=== PATIENT | female | born 1985 ===

== ENCOUNTER 2017-06-11 02:20 | Inpatient (IN) ==
--- NOTE | 2017-06-11 02:27 | Emergency Department Note ---
Disposition Abdominal Pain HPI - General Chief Complaint: ED Abdominal Pain Stated Complaint: kidney stone Time Seen by Provider: 06/11/17 02:27 Source: patient Mode of arrival: ambulatory Limitations: no limitations Nursing Notes Reviewed: Yes Vital Signs Reviewed: Yes - History of Present Illness Pain Scale: 9 - Related Data Allergies Allergy/AdvReac Type Severity Reaction Status Date / Time Penicillins AdvReac Hives Verified 06/11/17 02:23 Sulfa (Sulfonamide AdvReac Hives Verified 06/11/17 02:23 Antibiotics) Abdominal Pain PMH - Past Medical History Medical history: Reports: kidney stones Psychiatric history: Reports: no psych history - Social History Smoking status: Current every day smoker Alcohol use: Reports: rarely Drug use: Reports: none Physical Exam - General Limitations: no limitations General appearance: alert Course Vital Signs Temperature 98.7 F 06/11/17 02:23 Pulse Rate 83 06/11/17 02:23 Respiratory Rate 12 06/11/17 02:23 Blood Pressure 138/90 06/11/17 02:23 O2 Sat by Pulse Oximetry 98 06/11/17 02:23 Temperature 98.7 F 06/11/17 02:23 Pulse Rate 83 06/11/17 02:23 Respiratory Rate 12 06/11/17 02:23 Blood Pressure 138/90 06/11/17 02:23 O2 Sat by Pulse Oximetry 98 06/11/17 02:23 Oxygen Delivery Oxygen Delivery Room Air
[2017-06-11] MEDS ORDERED: Ondansetron 4 MG/2 ML VIAL IVP ONE (02:35)
[2017-06-11] MEDS ORDERED: 0.9 % Sodium Chloride 1,000 ML IVC ONE ×2 (02:35→10:52)
[2017-06-11] MEDS ORDERED: Ketorolac 15 MG/ML VIAL IVP ONE (02:35)
--- NOTE | 2017-06-11 02:46 | Emergency Department Note ---
Disposition Clinical Impression: Right distal ureteral calculus, Ureteral obstruction, right UTI (urinary tract infection) Qualifiers: Urinary tract infection type: site unspecified Hematuria presence: with hematuria Qualified Code(s): N39.0 - Urinary tract infection, site not specified Abdominal pain Qualifiers: Abdominal location: right lower quadrant Qualified Code(s): R10.31 - Right lower quadrant pain Nausea and vomiting Qualifiers: Vomiting type: unspecified Vomiting Intractability: non-intractable Qualified Code(s): R11.2 - Nausea with vomiting, unspecified Disposition: Admitted As Inpatient Condition: Fair Time of Disposition: 04:08 Abdominal Pain HPI - General Chief Complaint: ED Abdominal Pain Stated Complaint: kidney stone Time Seen by Provider: 06/11/17 02:27 Source: patient Nursing Notes Reviewed: Yes Vital Signs Reviewed: Yes - History of Present Illness HPI Narrative: 31-year-old female complains of right lower back, flank with radiation to right- side of groin pain that started 9 hours ago. Patient states she has a history of kidney stones with her last stone passing at home 4 months ago. Patient states she tried to pass the stone at home with taken Tylenol but her pain elevated to 10/10, 2-1/2 hours ago. She could not longer tolerate the pain with associated nausea, and vomiting. Patient also complains of urgency and frequency, but is urinating in very small amounts and did not see any blood. Patient has had surgery to correct damage to her left ureter in the past. An patient has had a . Patient still has appendix and gallbladder Pain Scale: 9 - Related Data Allergies Allergy/AdvReac Type Severity Reaction Status Date / Time Penicillins AdvReac Hives Verified 06/11/17 02:23 Sulfa (Sulfonamide AdvReac Hives Verified 06/11/17 02:23 Antibiotics) All systems ED: reviewed and negative except as stated. Review of Systems: As Per HPI Constitutional: Reports: fever. Denies: chills, weakness Gastrointestinal: Reports: abdominal pain, nausea, vomiting. Denies: diarrhea Genitourinary: Reports: urgency, dysuria, frequency Musculoskeletal: Reports: back pain Abdominal Pain PMH - Past Medical History Medical history: Reports: kidney stones Psychiatric history: Reports: no psych history - Social History Smoking status: Current every day smoker Alcohol use: Reports: rarely Drug use: Reports: none Physical Exam Vital Signs Temperature 98.7 F 02/11/18 02:23 Pulse Rate 83 06/11/17 02:23 Respiratory Rate 12 06/11/17 02:23 Blood Pressure 138/90 06/11/17 02:23 O2 Sat by Pulse Oximetry 98 06/11/17 02:23 Temperature 98.7 F 06/11/17 02:23 Pulse Rate 83 06/11/17 02:23 Respiratory Rate 12 06/11/17 02:23 Blood Pressure 138/90 06/11/17 02:23 O2 Sat by Pulse Oximetry 98 06/11/17 02:23 Oxygen Delivery Oxygen Delivery Room Air CONSTITUTIONAL: Alert and oriented X3, well-nourished, well appearing, in no apparent distress HEAD: Normocephalic; atraumatic. EYES: PERRL, no scleral icterus. NOSE: The nose is normal in appearance without rhinorrhea RESP: Normal chest excursion with respiration; breath sounds clear and equal bilaterally; no wheezes, rhonchi, or rales CARD: Regular rhythm, without murmurs, rub or gallop ABD: Non-distended; tender to palpation over McBurney's point. Moderate rebound tenderness soft,without rigidity, or guarding Back: Right-sided CVA tenderness to light palpation SKIN: Normal for age and race; warm and dry; no apparent lesions EXTREMITIES: Pulses are 2 plus and equal times 4 extremities, no peripheral edema or calf muscle pain. - General Limitations: no limitations General appearance: alert Course - Reevaluation(s) Reevaluation #1: Patient still in pain. 55 g of fentanyl ordered IV. Patient also have IV ceftriaxone 1 g ordered for her UTI Time: 03:54 Reevaluation #2: Patient's pains going back up. Patient is given 1 dose of by mouth morphine 30 mg with a small amount of water Time: 04:27 - Consultations Consultation #1: Consulted with Dr. Knowles presents to keep patient nothing by mouth and admit to medicine Time: 03:54 Vital Signs Temperature 98.7 F 06/11/17 02:23 Pulse Rate 83 06/11/17 02:23 Respiratory Rate 12 06/11/17 02:23 Blood Pressure 138/90 06/11/17 02:23 O2 Sat by Pulse Oximetry 98 06/11/17 02:23 Temperature 98.3 F 06/11/17 04:22 Pulse Rate 83 02/11/18 02:23 Respiratory Rate 16 06/11/17 04:22 Blood Pressure 132/84 06/11/17 04:22 O2 Sat by Pulse Oximetry 98 06/11/17 02:23 Oxygen Delivery Oxygen Delivery Room Air Abdominal Pain - MDM Narrative Medical decision making narrative: Patient presents with right-sided CVA, flank and abdominal pain crossing over McBurney's point with a history of kidney stones. Patient still has an appendix. Patient's workup is for kidney stones versus acute appendicitis. Labs: UA, urine test, CBC, BMP, LFTs, lipase ordered. CT abdomen and pelvis noncontrast ordered. Patient will be administered Toradol for pain and Zofran for nausea. CT scan per radiology shows 1. Tandem of adjacent obstructing distal right ureter calculi, measuring in total 10 mm in length. Largest individual stone measures approximately 6 mm. There is associated severe hydroureter and moderate hydronephrosis. 2. 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 No left hydronephrosis. 3. No evidence of acute appendicitis. Patient has right-sided ureterolithiasis complicated by UTI. Patient will require urologic follow-up and inpatient treatment with IV antibiotics. Patient has no elevation of WBC and a sore labs are clinically unremarkable. I discussed case with Dr. Knowles of urology, he states to keep patient nothing by mouth and admit to medicine. She understands and agrees to treatment and plan for admission. Dr. Devries the hospitalist as accepted patient for admission at 0408 hrs in stable condition. Pain controlled. - Lab Data Lab results reviewed: Yes I reviewed the patient's lab results. Lab results narrative: Short CBC 06/11/17 Range/Units 03:00 WBC 7.6 (4.3-11.1) K/mcL Hgb 13.4 (11.5-15.4) g/dL Hct 41.5 (35.3-44.9) % Plt Count 319 (140-400) K/mcL Neutrophils # 6.0 (1.6-8.9) K/mcL BMP 06/11/17 Range/Units 03:00 Sodium 138 (136-145) mEq/L Potassium 3.5 (3.5-5.1) mEq/L Chloride 107 (98-107) mEq/L Carbon Dioxide 24 (23-29) mEq/L BUN 10 (6-20) mg/dL Creatinine 0.77 (0.60-1.20) mg/dL Glucose 134 H (70-105) mg/dL Calcium 9.2 (8.6-10.3) mg/dL Liver Function 06/11/17 Range/Units 03:00 Total Bilirubin 0.3 (0.3-1.0) mg/dL Direct Bilirubin 0.1 (0.0-0.2) mg/dL AST 14 (13-39) Units/L ALT 16 (7-52) Units/L Alkaline Phosphatase 115 H (34-104) Units/L Albumin 4.4 (3.5-5.7) g/dL Urine 06/11/17 Range/Units 02:46 Urine Color Yellow (Yellow) Urine Clarity Cloudy A (Clear) Urine pH 6.0 (5.0-8.0) pH Units Ur Specific [place] 1.030 H (1.010-1.025) Urine Protein 30 H (Neg-Trace) mg/dL Urine Glucose (UA) Normal (Normal) mg/dL Result diagrams: 06/11/17 03:00 06/11/17 03:00 Lab Results 06/11/17 06/11/17 06/11/17 Range/Units 02:46 02:46 03:00 WBC 7.6 (4.3-11.1) K/mcL RBC 5.21 H (3.82-4.97) M/mcL Hgb 13.4 (11.5-15.4) g/dL Hct 41.5 (35.3-44.9) % MCV 79.7 L (83.0-100.0) fL MCH 25.7 L (28.0-33.3) pg MCHC 32.3 (31.6-35.5) g/dL RDW 14.2 (11.5-14.5) % Plt Count 319 (140-400) K/mcL MPV 9.7 (9.4-12.4) fL Immature Gran % 0.4 (0-4) % Seg Neutrophils % 78.6 % Lymphocytes % 13.0 % Monocytes % 6.4 % Eosinophils % 1.2 % Basophils % 0.4 % Neutrophils # 6.0 (1.6-8.9) K/mcL Lymphocytes # 1.0 (0.6-4.6) K/mcL Monocytes # 0.5 (0.0-1.3) K/mcL Eosinophils # 0.1 (0.0-0.6) K/mcL Basophils # 0.0 (0.0-0.2) K/mcL Sodium (136-145) mEq/L Potassium (3.5-5.1) mEq/L Chloride (98-107) mEq/L Carbon Dioxide (23-29) mEq/L BUN (6-20) mg/dL Creatinine (0.60-1.20) mg/dL Est GFR ( Amer) (> 60) Est GFR (Non-Af Amer) (> 60) BUN/Creatinine Ratio (6-26) Glucose (70-105) mg/dL Calculated Osmolality (280-300) Calcium (8.6-10.3) mg/dL Total Bilirubin (0.3-1.0) mg/dL Direct Bilirubin (0.0-0.2) mg/dL Indirect Bilirubin (0.0-1.2) mg/dL AST (13-39) Units/L ALT (7-52) Units/L Alkaline Phosphatase (34-104) Units/L Serum Total Protein (6.4-8.9) g/dL Albumin (3.5-5.7) g/dL Globulin (2.4-3.5) g/dL Albumin/Globulin Ratio (1.1-2.2) Lipase (11-82) Units/L Urine Color Yellow (Yellow) Urine Clarity Cloudy A (Clear) Urine pH 6.0 (5.0-8.0) pH Units Ur Specific [place] 1.030 H (1.010-1.025) Urine Protein 30 H (Neg-Trace) mg/dL Urine Glucose (UA) Normal (Normal) mg/dL Urine Ketones Negative (Negative) mg/dL Urine Blood Small H (Negative) Urine Nitrite Negative (Negative) Urine Bilirubin Negative (Negative) Urine Urobilinogen Normal (Normal) mg/dL Ur Leukocyte Esterase Moderate H (Negative) Urine Microscopic RBC 15-30 H (0-3) per hpf Urine Microscopic WBC TNTC H (0-3) per hpf Ur Squamous Epith Cells Many H (None-Few) per lpf Urine Bacteria Moderate H (None-Few) per hpf Hyaline Casts None Seen (None-Few) per lpf Ur Culture Indicated? NO. (NO) Urine Test Negative (Negative) 06/11/17 Range/Units 03:00 WBC (4.3-11.1) K/mcL RBC (3.82-4.97) M/mcL Hgb (11.5-15.4) g/dL Hct (35.3-44.9) % MCV (83.0-100.0) fL MCH (28.0-33.3) pg MCHC (31.6-35.5) g/dL RDW (11.5-14.5) % Plt Count (140-400) K/mcL MPV (9.4-12.4) fL Immature Gran % (0-4) % Seg Neutrophils % % Lymphocytes % % Monocytes % % Eosinophils % % Basophils % % Neutrophils # (1.6-8.9) K/mcL Lymphocytes # (0.6-4.6) K/mcL Monocytes # (0.0-1.3) K/mcL Eosinophils # (0.0-0.6) K/mcL Basophils # (0.0-0.2) K/mcL Sodium 138 (136-145) mEq/L Potassium 3.5 (3.5-5.1) mEq/L Chloride 107 (98-107) mEq/L Carbon Dioxide 24 (23-29) mEq/L BUN 10 (6-20) mg/dL Creatinine 0.77 (0.60-1.20) mg/dL Est GFR ( Amer) > 60 (> 60) Est GFR (Non-Af Amer) > 60 (> 60) BUN/Creatinine Ratio 13 (6-26) Glucose 134 H (70-105) mg/dL Calculated Osmolality 287 (280-300) Calcium 9.2 (8.6-10.3) mg/dL Total Bilirubin 0.3 (0.3-1.0) mg/dL Direct Bilirubin 0.1 (0.0-0.2) mg/dL Indirect Bilirubin 0.2 (0.0-1.2) mg/dL AST 14 (13-39) Units/L ALT 16 (7-52) Units/L Alkaline Phosphatase 115 H (34-104) Units/L Serum Total Protein 7.5 (6.4-8.9) g/dL Albumin 4.4 (3.5-5.7) g/dL Globulin 3.1 (2.4-3.5) g/dL Albumin/Globulin Ratio 1.4 (1.1-2.2) Lipase 27 (11-82) Units/L Urine Color (Yellow) Urine Clarity (Clear) Urine pH (5.0-8.0) pH Units Ur Specific [place] (1.010-1.025) Urine Protein (Neg-Trace) mg/dL Urine Glucose (UA) (Normal) mg/dL Urine Ketones (Negative) mg/dL Urine Blood (Negative) Urine Nitrite (Negative) Urine Bilirubin (Negative) Urine Urobilinogen (Normal) mg/dL Ur Leukocyte Esterase (Negative) Urine Microscopic RBC (0-3) per hpf Urine Microscopic WBC (0-3) per hpf Ur Squamous Epith Cells (None-Few) per lpf Urine Bacteria (None-Few) per hpf Hyaline Casts (None-Few) per lpf Ur Culture Indicated? (NO) Urine Test (Negative) - Radiology Data Radiology results reviewed: Yes I reviewed the patient's radiology results. Abdomen/Pelvis CT 06/11/17 02:34 IMPRESSION: 1. Tandem of adjacent obstructing distal right ureter calculi, measuring in total 10 mm in length. Largest individual stone measures approximately 6 mm. There is associated severe hydroureter and moderate hydronephrosis. 2. 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 No left hydronephrosis. 3. No evidence of acute appendicitis. D/ / Varun Cortez MD / Varun Cortez MD Interpreting Provider: Varun Cortez MD Attestation Statement - Attestation Attestation: I examined this patient and my medical decision-making was reviewed with the Resident Physician. I agree with the documented findings, disposition and treatment plan as described except to the extent set forth below. Patient in the emergency department with right-sided flank pain. History of kidney stones. Patient does admit that she has been having some burning with urination and she did try to drink a lot of water. On examination she is uncomfortable pacing in the room. Right CVA tenderness. Plan. Patient with 2 stones in the right distal ureter. UTI. She is discussed with urology. Starting on antibiotic and admit to medicine.
[2017-06-11 02:52] LABS: Bilirubin,Urine Negative (Negative); Blood,Urine Small (Negative); Clarity,Urine Cloudy (Clear); Color,Urine Yellow (Yellow); Glucose,Urine (UA) Normal (Normal); Ketones,Urine Negative (Negative); Leukocyte Esterase,Urine Moderate (Negative); Nitrite,Urine Negative (Negative); Protein,Urine 30 mg/dL (Neg-Trace); Urobilinogen,Urine Normal (Normal)
[2017-06-11 02:53] LABS: Bacteria,Urine Moderate per hpf (None-Few); Hyaline Casts,Urine None Seen per lpf (None-Few); RBC,Urine 15-30 per hpf (0-3); Squamous Epithelial Cell,Urine Many per lpf (None-Few); WBC,Urine TNTC per hpf (0-3)
[2017-06-11 03:08] LABS: Basophils % 0.4 %; Eosinophils # 0.1 K/mcL (0.0-0.6); Eosinophils % 1.2 %; Hematocrit 41.5 % (35.3-44.9); Hemoglobin 13.4 g/dL (11.5-15.4); Immature Granulocytes % 0.4 % (0-4); Mean Corpuscular HGB Conc 32.3 g/dL (31.6-35.5); Mean Corpuscular Hemoglobin 25.7 pg (28.0-33.3); Mean Corpuscular Volume 79.7 fL (83.0-100.0); Mean Platelet Volume 9.7 fL (9.4-12.4); Monocytes # 0.5 K/mcL (0.0-1.3); Monocytes % 6.4 %; Platelet Count 319 K/mcL (140-400); Red Blood Count 5.21 M/mcL (3.82-4.97); Red Cell Distribution Width 14.2 % (11.5-14.5); Segmented Neutrophils % 78.6 %
[2017-06-11 03:23] LABS: Alanine Aminotransferase 16 Units/L (7-52); Albumin 4.4 g/dL (3.5-5.7); Albumin/Globulin Ratio 1.4 (1.1-2.2); Alkaline Phosphatase 115 Units/L (34-104); Aspartate Amino Transferase 14 Units/L (13-39); BUN/Creatinine Ratio 13 (6-26); Bilirubin,Direct 0.1 mg/dL (0.0-0.2); Bilirubin,Indirect 0.2 mg/dL (0.0-1.2); Bilirubin,Total 0.3 mg/dL (0.3-1.0); Blood Urea Nitrogen 10 mg/dL (6-20); Calcium 9.2 mg/dL (8.6-10.3); Carbon Dioxide 24 mEq/L (23-29); Chloride 107 mEq/L (98-107); Globulin 3.1 g/dL (2.4-3.5); Glucose 134 mg/dL (70-105); Lipase 27 Units/L (11-82); Osmolality,Calculated 287 (280-300); Potassium 3.5 mEq/L (3.5-5.1); Sodium 138 mEq/L (136-145); Total Protein 7.5 g/dL (6.4-8.9); eGFR For African Americans > 60 (> 60); eGFR For Non-African Americans > 60 (> 60)
[2017-06-11] MEDS ORDERED: *HR* FentaNYL (PF) 100 MCG/2 ML VIAL IVP ONE (03:30)
[2017-06-11] MEDS ORDERED: cefTRIAXone 1,000 MG in Water for inj. (sterile) 20 ML 10 ML IVPB ONE (04:00)
--- NOTE | 2017-06-11 04:20 | Internal Med History&Physical ---
Date of Encounter: 06/11/17 Time of Encounter: 04:17 Assessment and Plan (1) Right distal ureteral calculus Current visit: Yes Status: Acute NPO, IVF, IV pain med, IV antibiotics ED d/w Dr Knowles who will see in a.m (2) Hydronephrosis, right Current visit: Yes Status: Acute management as above (3) PCOS (polycystic ovarian syndrome) Current visit: Yes Status: Acute (4) UTI (urinary tract infection) Current visit: Yes Status: Acute IV rocephin cx pend Qualifiers: Urinary tract infection type: site unspecified Hematuria presence: with hematuria Qualified Code(s): N39.0 - Urinary tract infection, site not specified; R31.9 - Hematuria, unspecified; R31.9 - Hematuria, unspecified Internal Medicine - H&P: HPI History of present illness: Ms. Pak is a 31 year old female with hx of PCOS and recurrent renal stones who presents with renal colic c/b UTI and hydronephrosis/hydroureter. She had prodromal 2 days hx of UTI symptoms prior to onset of right sided flank pain on monday. 02/07, sharp, associated with emesis, burning urination. Improved with fentanyl. Did not get better with toradol CT/CT abd pelvis wo no iv no oral IMPRESSION: 1. Tandem of adjacent obstructing distal right ureter calculi, measuring in total 10 mm in length. Largest individual stone measures approximately 6 mm. There is associated severe hydroureter and moderate hydronephrosis. 2. 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 No left hydronephrosis. 3. No evidence of acute appendicitis. Past Med Surg Social Fam HX - Past Medical History Medical history: kidney stones Psychiatric history: no psych history - Social History Smoking Status: Current every day smoker Smokeless Tobacco Status: No Alcohol use: rarely Drug use: none Internal Medicine - H&P: Meds 3 Allergy/AdvReac Type Severity Reaction Status Date / Time Penicillins AdvReac Hives Verified 06/11/17 02:23 Sulfa (Sulfonamide AdvReac Hives Verified 06/11/17 02:23 Antibiotics) All Systems PM: A 10-system review of systems was performed and is negative for pertinent findings except as documented above in the HPI. Review of systems: ROS 14 point review of systems reviewed as best as possible given presentation. Pertinent positive or negative as per HPI or otherwise reviewed as negative - Constitutional Vitals: Temp Pulse Resp BP Pulse Ox 98.7 F 83 12 138/90 98 06/11/17 02:23 06/11/17 02:23 06/11/17 02:23 06/11/17 02:23 06/11/17 02:23 Exam: General - AAO x 3 Psych - Appropriate affect/speech. No agitation Eyes - BRENDA. Eye lids intact. No scleral icterus Heart - Sinus. RRR. S1 and S2 present. No added HS/murmurs appreciated. No elevated JVD appreciated. Lung - Adequate air entry b/l, No crackles/wheezes appreciated GI - Soft, non-tender. No hepatosplenomegaly/ascites. BS+ - Right sided flank pain Skin - Intact. No rash/petechiae/ecchymosis. Warm extremities MSK - Joints with normal ROM. No joint swellings Internal Med - H&P Results - Labs CBC & Chem 7: 06/11/17 03:00 06/11/17 03:00 Labs: Short CBC 06/11/17 Range/Units 03:00 WBC 7.6 (4.3-11.1) K/mcL Hgb 13.4 (11.5-15.4) g/dL Hct 41.5 (35.3-44.9) % Plt Count 319 (140-400) K/mcL Neutrophils # 6.0 (1.6-8.9) K/mcL BMP 06/11/17 03:00 Sodium 138 Potassium 3.5 Chloride 107 Carbon Dioxide 24 BUN 10 Creatinine 0.77 Glucose 134 H Calcium 9.2 Liver Function 06/11/17 Range/Units 03:00 Total Bilirubin 0.3 (0.3-1.0) mg/dL Direct Bilirubin 0.1 (0.0-0.2) mg/dL AST 14 (13-39) Units/L ALT 16 (7-52) Units/L Alkaline Phosphatase 115 H (34-104) Units/L Albumin 4.4 (3.5-5.7) g/dL Urine 06/11/17 Range/Units 02:46 Urine Color Yellow (Yellow) Urine Clarity Cloudy A (Clear) Urine pH 6.0 (5.0-8.0) pH Units Ur Specific [place] 1.030 H (1.010-1.025) Urine Protein 30 H (Neg-Trace) mg/dL Urine Glucose (UA) Normal (Normal) mg/dL - Impressions ITS Impressions Abdomen/Pelvis CT 06/11/17 02:34 IMPRESSION: 1. Tandem of adjacent obstructing distal right ureter calculi, measuring in total 10 mm in length. Largest individual stone measures approximately 6 mm. There is associated severe hydroureter and moderate hydronephrosis. 2. 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 No left hydronephrosis. 3. No evidence of acute appendicitis. D/ / Varun Cortez MD / Varun Cortez MD Interpreting Provider: Varun Cortez MD
[2017-06-11] MEDS ORDERED: Naloxone 0.4 MG/ML INJ IVP PRN ×2 (04:22→15:27)
[2017-06-11] MEDS ORDERED: Prochlorperazine 10 MG/2 ML VIAL IVP PRN ×2 (04:24→15:27)
[2017-06-11] MEDS ORDERED: Ondansetron 4 MG/2 ML VIAL IVP PRN ×2 (04:24→15:27)
[2017-06-11] MEDS ORDERED: *HR* FentaNYL (PF) 100 MCG/2 ML VIAL IVP PRN ×2 (04:26→15:27)
[2017-06-11] MEDS ORDERED: *HR* Morphine Immed Rel 30 MG TABLET PO ONE (04:26)
[2017-06-11] MEDS ORDERED: Ringers Solution, Lactated 1,000 ML IVC SCH (04:30)
--- NOTE | 2017-06-11 07:38 | Urology - Consult Note ---
Date of Encounter: 06/11/17 Time of Encounter: 07:34 - Assessment and Plan (1) Right distal ureteral calculus Current Visit: Yes Status: Acute Assessment and plan: Patient feels better this morning. We will obtain KUB for evaluation of right distal ureteral stones. If stone still in place we will proceed with right ureteroscopic stone extraction later today. Informed consent obtained and placed in the chart. Patient and significant other agree with proceeding with procedure if indicated. (2) UTI (urinary tract infection) Current Visit: Yes Status: Acute Assessment and plan: Patient's urinalysis was negative for nitrites and appears contaminated patient did receive Rocephin already. Question whether the patient truly has a urinary tract infection with no elevated WBC count and no fever. Qualifiers: Urinary tract infection type: site unspecified Hematuria presence: with hematuria Qualified Code(s): N39.0 - Urinary tract infection, site not specified; R31.9 - Hematuria, unspecified; R31.9 - Hematuria, unspecified Urology CN:HPI Consult date: 06/11/17 Requesting physician: Antelmo Lerma History of present illness: Candy is a 31-year-old female with a history of recent admission to the hospital secondary to severe right-sided flank pain. Patient was found in the emergency department last night to have 2 distal right ureteral stones. Patient also with a smaller right renal stone. Patient states that her pain has improved this morning. Pain is currently a 2-3 and a 10. Pain is pressure in nature located in the right flank. Patient denies any current nausea or vomiting. No fevers. Patient's urinalysis appears contaminated. Labs are relatively normal. Past Med Surg Social Fam HX - Past Medical History Medical history: kidney stones Psychiatric history: no psych history - Past Surgical History Surgical History: - Social History Smoking Status: Current every day smoker Smokeless Tobacco Status: No Alcohol use: rarely Drug use: none Medications and Allergies 3 Allergy/AdvReac Type Severity Reaction Status Date / Time Penicillins AdvReac Hives Verified 06/11/17 02:23 Sulfa (Sulfonamide AdvReac Hives Verified 06/11/17 02:23 Antibiotics) Review of Systems - Constitutional no chills, no fever(s) - EENT Nose, mouth and throat: no dizziness, no headache(s) - Cardiovascular no chest pain - Respiratory no cough, no dyspnea - Gastrointestinal abdominal pain - Musculoskeletal back pain - Integumentary no erythema - Neurological no confusion - Psychiatric no confusion - Hematologic/Lymphatic no lymphadenopathy - Allergic/Immunologic no throat swelling, no wheezing Exam Initial Vital Signs Temp Pulse Resp BP Pulse Ox 98.7 F 83 12 138/90 98 06/11/17 02:23 06/11/17 02:23 06/11/17 02:23 06/11/17 02:23 06/11/17 02:23 - General physical appearance Present: well developed, no distress, moderate pain. Absent: jaundice - Eyes Absent: icteric - Neck Present: no masses, no lymphadenopathy - Respiratory Present: normal respiratory effort - Cardiovascular Cardiovascular exam IM: RRR - Abdomen Abdomen: Present: soft. Absent: masses, suprapubic tenderness - Integumentary Present: no rash, no abnormal pigmentation. Absent: lesions - Neurologic Absent: confused Urology Results - Labs 06/11/17 03:00 06/11/17 03:00 Abnormal lab results RBC 5.21 M/mcL (3.82-4.97) H 06/11/17 03:00 MCV 79.7 fL (83.0-100.0) L 06/11/17 03:00 MCH 25.7 pg (28.0-33.3) L 06/11/17 03:00 Glucose 134 mg/dL (70-105) H 06/11/17 03:00 Alkaline Phosphatase 115 Units/L (34-104) H 06/11/17 03:00 Urine Clarity Cloudy (Clear) A 06/11/17 02:46 Ur Specific [place] 1.030 (1.010-1.025) H 06/11/17 02:46 Urine Protein 30 mg/dL (Neg-Trace) H 06/11/17 02:46 Urine Blood Small (Negative) H 06/11/17 02:46 Ur Leukocyte Esterase Moderate (Negative) H 06/11/17 02:46 Urine Microscopic RBC 15-30 per hpf (0-3) H 06/11/17 02:46 Urine Microscopic WBC TNTC per hpf (0-3) H 06/11/17 02:46 Ur Squamous Epith Cells Many per lpf (None-Few) H 06/11/17 02:46 Urine Bacteria Moderate per hpf (None-Few) H 06/11/17 02:46 All other labs normal. - Imaging CT scan - abdomen: image reviewed CT scan - pelvis: image reviewed (Distal right ureteral stone as well as right renal stone) Consult Discharge Plan - Plan Referrals: Abby Yadav MD [Primary Care Provider] - Kit Cesar MD [Family Provider] -
--- NOTE | 2017-06-11 10:57 | Internal Med Progress Note ---
Date of Encounter: 06/11/17 Time of Encounter: 10:54 - Assessment and plan (1) Sepsis Current Visit: Yes Status: Acute Assessment and plan: Presumed sepsis Fever 100.8, HR 110-120, Evidence of abnormal UA Continue 2g rocephin daily IVF hydration, BP low normal Follow urine culture Obtain blood culture Complicated UTI due to presence of stones and hydronephrosis, urology is following Obtain EKG to evaluate tachycardia Pain control Strict I/Os Qualifiers: Sepsis type: sepsis due to unspecified organism Qualified Code(s): A41.9 - Sepsis, unspecified organism (2) UTI (urinary tract infection) Current Visit: Yes Status: Acute Assessment and plan: complicated, plan is as in sepsis above Qualifiers: Urinary tract infection type: site unspecified Hematuria presence: with hematuria Qualified Code(s): N39.0 - Urinary tract infection, site not specified; R31.9 - Hematuria, unspecified; R31.9 - Hematuria, unspecified (3) Hydronephrosis Current Visit: Yes Status: Acute Assessment and plan: following, as above Qualifiers: Hydronephrosis type: with renal calculous obstruction Qualified Code(s): N13.2 - Hydronephrosis with renal and ureteral calculous obstruction (4) Right distal ureteral calculus Current Visit: Yes Status: Acute Assessment and plan: As in sepsis - Subjective Interval history: Seen and evaluated at the bedside, she reports some improvement in her back pain NOw having fevers, tachycardic, no chest pain or palpitations EKG reviewed-Sinus - Constitutional Vitals: Temp Pulse Resp BP Pulse Ox 99.0 F 125 14 98/56 96 06/11/17 10:10 06/11/17 10:10 06/11/17 10:10 06/11/17 10:10 06/11/17 10:10 General appearance: Present: mild distress, A&O X 3, pleasant - Head Head exam: Present: atraumatic, normocephalic - Eye Eye exam: Present: PERRL, conjuntiva pink, sclera anicteric Pupils: Present: PERRL - Neck Neck exam general surgery: Present: supple, trachea midline. Absent: lymphadenopathy - Respiratory Respiratory exam: Present: CTAB. Absent: accessory muscle use, rales, rhonchi, wheezes - Cardiovascular Cardiovascular exam: Present: RRR, +S1, +S2. Absent: diastolic murmur, gallop, rubs, systolic murmur - GI/Abdominal GI/Abdominal exam: Present: normal bowel sounds, soft, no peritoneal signs. Absent: distended, tenderness - Extremities Exam Extremities exam: Present: warm, radial pulses palpable and symmetrical. Absent : calf tenderness, cyanotic, pedal edema - Back Exam Back exam: Present: CVA tenderness (R) - Neurological Exam Neurological exam: Present: alert, CN II-XII intact, oriented X3, no focal deficits. Absent: pronater drift, facial droop, speech deficit - Skin Skin exam: Present: dry, intact Internal Medicine: Result - Labs CBC & Chem 7: 06/11/17 03:00 06/11/17 03:00 - Impressions Impressions KUB X-Ray 06/11/17 07:31 IMPRESSION: Stones in the distal right ureter seen to better advantage on CT from earlier in the same day. Questionable visualization of the stone mid pole right kidney. D/ / 06/11/2017 09:25:02 Rafat Condon MD / laura Interpreting Provider: Rafat Condon MD Consult Discharge Plan - Plan Referrals: Kit Cesar MD [Family Provider] - Abby Yadav MD [Primary Care Provider] -
[2017-06-11] MEDS ORDERED: 0.9 % Sodium Chloride 1,000 ML IVC SCH (11:00)
--- NOTE | 2017-06-11 13:57 | Anesthesia Evaluation PreOp ---
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: Denies Any Significant HX Other Medical History: Other (PCOS) Anesthesia History: No Prior Anesthetic Complications : No Test: Negative Alcohol Use: rarely Drug use: none Medications and Allergies No Known Home Drugs 06/11/17 [History] 3 Allergy/AdvReac Type Severity Reaction Status Date / Time Penicillins AdvReac Hives Verified 06/11/17 02:23 Sulfa (Sulfonamide AdvReac Hives Verified 06/11/17 02:23 Antibiotics) - Meds/Allergy Pre-op Review Medications Reviewed: Yes Allergies Reviewed: Yes Beta Blockers on Current Med List: No Anesthesia Results - Labs 06/11/17 03:00 06/11/17 03:00 Anesthesia Exam O2 Sat Height 1.6 m Height 1.6 m Weight 83.642 kg Weight 83.915 kg O2 Sat by Pulse Oximetry 96 O2 Sat by Pulse Oximetry 95 O2 Sat by Pulse Oximetry 92 O2 Sat by Pulse Oximetry 98 O2 Sat by Pulse Oximetry 98 Vital Signs Temp Pulse Resp BP Pulse Ox 98.7 F 83 12 138/90 98 06/11/17 02:23 06/11/17 02:23 06/11/17 02:23 06/11/17 02:23 06/11/17 02:23 Height: 5'3 Weight: 184 lbs NPO (# of Hours): MN Pain Scale: 0 - HEENT Pupil (Motor): Pupils equal, EOMI Mallampati: II Teeth: Normal Oral Opening: Greater than 3 - SAP SECURITY ARCHITECT LOC: Oriented SAP SECURITY ARCHITECT Motor: Normal RUE, Normal LUE, Normal RLE, Normal LLE, Normal Face SAP SECURITY ARCHITECT Sensory: Normal: RUE, LUE, RLE, LLE, Face - Cardiac Rhythm: Regular Murmur: None JVD: No Carotid Bruit: No - Pulmonary Breath Sounds: bilateral Clear Respiratory Effort: Symmetrical Anesthesia Assess/Plan ASA Score: 2 Modified Ada Scale for Level of Consciousness: Cooperative, oriented, and tranquil Anesthetic Plan: General Monitoring Plan: Standard Monitors Recovery Plan: PACU (Discussed GA, agrees to proceed)
[2017-06-11] MEDS ORDERED: Lidocaine -MPF 2% 2 ML VIAL ONE (14:10)
[2017-06-11] MEDS ORDERED: *HR* FentaNYL (PF) 100 MCG/2 ML VIAL ONE (14:17)
[2017-06-11] MEDS ORDERED: Ondansetron 4 MG/2 ML VIAL ONE (14:22)
[2017-06-11] MEDS ORDERED: Dexamethasone 4 MG/ML VIAL ONE (14:22)
[2017-06-11] MEDS ORDERED: *HR* Propofol 200 MG/20 ML VIAL IVP ONE (14:28)
--- NOTE | 2017-06-11 14:35 | Operative Note ---
Date of procedure: 06/11/17 Pre-op diagnosis: right distal ureteral stone and fever Procedure: Right ureteroscopic laser lithotripsy of stone, right ureteroscopic basket retrieval stone fragment, right 4.8 x 24 cm ureteral stent placement Anesthesia: VINCENZO Surgeon: Jordi Knowles Was there an case assistant present: No Estimated blood loss (cc): 0 Specimen: right ureteral stone Procedure in Detail: All risks benefits and alternatives to the procedure were discussed with the patient in holding. Informed consent was reviewed and she agreed to proceed. Patient taken operating room. Prepped and draped in normal sterile fashion. Timeout procedure performed. I then inserted the cystoscope into the patient's bladder. The right ureteral orifice was cannulated using a sensor wire. Immediate return of hydronephrotic fluid was obtained. No obvious pus was seen. I then placed the semirigid ureteroscope into the patient's bladder and advanced into the right ureter. I then used the holmium laser to fragment the distal stones. I then used the basket device to remove all stone fragments. The entire ureter was then fully surveyed with no further stones seen. I then placed a 4.8 x 24 cm ureteral stent with good curl seen in the right kidney and in the bladder. String was left for easy removal in 2-3 days.
--- NOTE | 2017-06-11 14:57 | Anesthesia Evaluation Post Op ---
Date of Encounter: 06/11/17 Time of Encounter: 15:05 - Vital Signs Vital Signs: Vital Signs/O2 Sat/Glucose, Most Current Temp Pulse Resp BP Pulse Ox 06/11/17 14:55 118 18 97/56 96 06/11/17 14:45 100 F H 121 18 99/53 97 06/11/17 11:55 104 112/78 - Lungs Lungs: Clear Ascult./Percussion - Airway Airway: Non-obstructed - Cardiovascular Regular Rate - Mental Status Mental Status: Alert & Oriented, Answers Appropriately - Nausea Vomiting Nausea Vomiting: Not Present - Hydration Hydration: Ice chips - Discharge PostOp Status: Transfer Patient to floor
[2017-06-11] MEDS ORDERED: *HR* Enoxaparin 40 MG/0.4 ML SYRINGE SQ SCH ×2 (18:00)
[2017-06-11] MEDS: 0.9 % Sodium Chloride 1,000 ML IVC SCH (22:43)
[2017-06-12 05:23] LABS: Basophils % 0.1 %; Hematocrit 34.9 % (35.3-44.9); Immature Granulocytes % 0.5 % (0-4); Lymphocytes % 8.6 %; Mean Corpuscular HGB Conc 31.8 g/dL (31.6-35.5); Mean Corpuscular Hemoglobin 25.9 pg (28.0-33.3); Mean Corpuscular Volume 81.5 fL (83.0-100.0); Mean Platelet Volume 10.1 fL (9.4-12.4); Monocytes # 0.5 K/mcL (0.0-1.3); Monocytes % 4.1 %; Neutrophils # 9.6 K/mcL (1.6-8.9); Platelet Count 237 K/mcL (140-400); Red Blood Count 4.28 M/mcL (3.82-4.97); Red Cell Distribution Width 15.1 % (11.5-14.5); Segmented Neutrophils % 86.7 %
[2017-06-12 05:38] LABS: BUN/Creatinine Ratio 11 (6-26); Blood Urea Nitrogen 6 mg/dL (6-20); Calcium 8.5 mg/dL (8.6-10.3); Carbon Dioxide 23 mEq/L (23-29); Chloride 112 mEq/L (98-107); Glucose 115 mg/dL (70-105); Hemoglobin 11.1 g/dL (11.5-15.4); Osmolality,Calculated 291 (280-300); Potassium 3.7 mEq/L (3.5-5.1); Sodium 141 mEq/L (136-145); eGFR For African Americans > 60 (> 60); eGFR For Non-African Americans > 60 (> 60)
[2017-06-12] MEDS ORDERED: cefTRIAXone 1,000 MG in Water for inj. (sterile) 20 ML 10 ML IVPB SCH (09:00)
[2017-06-12] MEDS: 0.9 % Sodium Chloride 1,000 ML IVC SCH ×2 (09:01→09:02)
--- NOTE | 2017-06-12 09:04 | Urology Progress Note ---
Date of Encounter: 06/12/17 Time of Encounter: 09:03 - Assessment and Plan (1) Right distal ureteral calculus Current Visit: Yes Status: Acute Assessment and plan: Status post removal and stent placement. Patient has had some incontinence so I we will add oxybutynin to the patient's medications. She is okay to remove her stent in 2-3 days. (2) UTI (urinary tract infection) Current Visit: Yes Status: Acute Assessment and plan: Currently improving on IV antibodies. Patient will need 10 days of by mouth antibiotics. Call with any questions. Patient will need follow-up appointment in 2-3 weeks. Qualifiers: Urinary tract infection type: site unspecified Hematuria presence: with hematuria Qualified Code(s): N39.0 - Urinary tract infection, site not specified; R31.9 - Hematuria, unspecified; R31.9 - Hematuria, unspecified Progress Note Narrative: Patient evaluated this morning. He feels much better. Still with some tachycardia and slightly low-grade fevers overnight Objective Initial Vital Signs Temp Pulse Resp BP Pulse Ox 98.7 F 83 12 138/90 98 06/11/17 02:23 06/11/17 02:23 06/11/17 02:23 06/11/17 02:23 06/11/17 02:23 - General physical appearance Present: well developed - Abdomen Present: soft - Labs 06/12/17 04:52 06/12/17 04:52 Diabetes panel 06/12/17 Range/Units 04:52 Sodium 141 (136-145) mEq/L Potassium 3.7 (3.5-5.1) mEq/L Chloride 112 H (98-107) mEq/L Carbon Dioxide 23 (23-29) mEq/L BUN 6 (6-20) mg/dL Creatinine 0.56 L (0.60-1.20) mg/dL Glucose 115 H (70-105) mg/dL Calcium 8.5 L (8.6-10.3) mg/dL Calcium panel 06/12/17 Range/Units 04:52 Calcium 8.5 L (8.6-10.3) mg/dL Pituitary panel 06/12/17 Range/Units 04:52 Sodium 141 (136-145) mEq/L Potassium 3.7 (3.5-5.1) mEq/L Chloride 112 H (98-107) mEq/L Carbon Dioxide 23 (23-29) mEq/L BUN 6 (6-20) mg/dL Creatinine 0.56 L (0.60-1.20) mg/dL Glucose 115 H (70-105) mg/dL Calcium 8.5 L (8.6-10.3) mg/dL Adrenal panel 06/12/17 Range/Units 04:52 Sodium 141 (136-145) mEq/L Potassium 3.7 (3.5-5.1) mEq/L Chloride 112 H (98-107) mEq/L Carbon Dioxide 23 (23-29) mEq/L BUN 6 (6-20) mg/dL Creatinine 0.56 L (0.60-1.20) mg/dL Glucose 115 H (70-105) mg/dL Calcium 8.5 L (8.6-10.3) mg/dL - VTE Documentation of Mechanical Device: Intermittent pneumatic compression device Consult Discharge Plan - Plan Referrals: Kit Cesar MD [Family Provider] - Abby Yadav MD [Primary Care Provider] -
[2017-06-12 10:18] VITALS: BP 112/71
[2017-06-12] MEDS ORDERED: cefTRIAXone 2,000 MG in Water for inj. (sterile) 20 ML 20 ML IVP SCH ×2 (11:00)
--- NOTE | 2017-06-12 13:29 | Discharge Summary ---
<Ant Bloutn - Last Filed: 06/12/17 13:43> Date of Encounter: 06/12/17 Time of Encounter: 13:34 - Discharge Diagnosis (1) Sepsis Priority: Primary Status: Acute Qualifiers: Sepsis type: sepsis due to unspecified organism Qualified Code(s): A41.9 - Sepsis, unspecified organism (2) Right distal ureteral calculus Priority: Secondary Status: Acute (3) UTI (urinary tract infection) Priority: Secondary Status: Acute Qualifiers: Urinary tract infection type: site unspecified Hematuria presence: with hematuria Qualified Code(s): N39.0 - Urinary tract infection, site not specified; R31.9 - Hematuria, unspecified; R31.9 - Hematuria, unspecified (4) Hydronephrosis Priority: Secondary Status: Acute Qualifiers: Hydronephrosis type: with renal calculous obstruction Qualified Code(s): N13.2 - Hydronephrosis with renal and ureteral calculous obstruction - Discharge Medications Prescriptions: Cephalexin [Keflex] 500 mg PO Q6H #40 capsule Oxybutynin [Ditropan] 5 mg PO TID #42 tablet Home Medications: Cephalexin [Keflex] 500 mg PO Q6H #40 capsule 06/12/17 [Rx] Oxybutynin [Ditropan] 5 mg PO TID #42 tablet 06/12/17 [Rx] Allergies/Adverse Reactions: 3 Allergy/AdvReac Type Severity Reaction Status Date / Time Penicillins AdvReac Hives Verified 06/11/17 02:23 Sulfa (Sulfonamide AdvReac Hives Verified 06/11/17 02:23 Antibiotics) Procedures/tests Complete & Pending: Procedures Performed prior 72 hours Category Date Time Status EKG [ECG 12 lead ECG] [ECG] Stat Y 06/11/17 10:53 Stop Req Date of admission: 06/11/17 04:22 Primary care physician: Abby Yadav MD Discharging clinician: Reid Hogue Anticipated date of discharge: 06/12/17 - Patient Status Disposition: Left Against Medical Advice Condition: Fair Functional capacity at discharge: independent ambulation Overall status at discharge: patient is progressing back to baseline - Discharge Instructions Follow Up With: Kit Cesar MD [Family Provider] - Jordi Knowles MD [Partnered Physician] - Abby Yadav MD [Primary Care Provider] - Additional Instructions: 1. I provided the contact information for Dr. Knowles with Nephrology. Please call his office in 2 days for culture results, to make sure the infection is sensitive to the prescribed antibiotic. If at any time you experiencing worsening symptoms such as fevers, abdominal pain, pain with urination, blood and urine, difficulty with urinating, or any other concerning symptoms return to the nearest emergency department for further evaluation and treatment. 2. Take your antibiotic as prescribed until completion. Follow Dr. Knowles's instructions on removing the stent tomorrow. Make a follow-up appointment in the next 1-[address] Knolwes to be further evaluated. Call his office at the number provided and your discharge instructions with any further questions. - Diet and Activity Activity: resume usual activities as tolerated Diet: advance to your usual diet Hospital course: Ms. Pak is a 31 year old female with history of PCO S and recurrent renal stones who presented initially with renal colic secondary to UTI with hydronephrosis/hydroureter. Prior to patient's arrival to the hospital she had 2 day history of UTI symptoms as well as right-sided flank pain. Initially, in the emergency Department the patient's vital signs were within normal limits she was started on 1 g IV ceftriaxone for a possible urinary tract infection after a positive leukocyte esterase in the urine. She is also treated for her pain. She had a CT scan performed that revealed a tandem of adjacent obstructing distal right ureter calculi with the largest individual stone measuring approximate 6 mm. There is also associated severe hydroureter and moderate hydronephrosis. Patient also had additional nonobstructing bilateral renal medullary nephrocalcinosis was measuring up to 6 mm on the right side. No left hydronephrosis was appreciated. No evidence of acute appendicitis. Nephrology was consulted. Dr. Knowles take the patient to the operating room in which she underwent right ureteroscopic laser lithotripsy of the stone as well as right ureteroscopic basket retrieval of stone fragment and right ureteral stent placement. The patient was instructed to remove the stent herself in the next 2-3 days. Is also structure that the patient be discharged on a ten-day course of antibiotics and follow-up with his office in 2-3 weeks. Throughout the patient's stay she did become febrile with a fever of 100.8 yesterday morning she is also found to be tachycardic. Patient was initiated on sepsis protocol and IV antibiotics were continued. Yesterday her urine was sent for culture. Today the urine culture results are not back and the patient remains mildly tachycardic. She has been given treated with Tylenol for her fever. The patient states that she does not believe she needs to stay in the hospital at this time is requesting to leave AMA. Discussed the importance of the patient staying in the hospital pending blood culture results and the patient's tachycardia and fever potentially from a serious infection. Discussed that the importance of the culture results that will show the sensitivities of the antibiotic for any bacteria infection in the urine. I discussed with the patient that if she leaves AGAINST MEDICAL ADVICE she makes parents worsening of her symptoms leading to worsening infection, return to the hospital, and possibly or disability. Patient states that she would still like to leave the hospital. I discussed the plan for her to sign out AMA. I discussed calling the nephrologists office in 2 days for culture results. I also discussed continuing antibiotics at home for the next 10 days and keeping her follow-up with Dr. Leblanc. I discussed return precautions with the patient which included worsening of fever, worsening abdominal pain, worsening of urinary symptoms such as pain, bleeding, or difficulty with urination or any other concerning symptoms that she is to return to the nearest emergency department for further evaluation and treatment. Patient agrees with that plan. Patient discharged with 10 day prescription for keflex, 5mg TID Oxybutynin for urinary incontinence, and follow up information with Dr. Leblanc. - Time Spent with Patient Total time spent providing and/or coordinating discharge services: - Constitutional Vitals: Temp Pulse Resp BP Pulse Ox 99.1 F 108 15 112/71 96 06/12/17 10:17 06/12/17 10:17 06/12/17 10:17 06/12/17 10:17 06/12/17 10:17 General appearance: Present: mild distress, A&O X 3, no acute distress - Head Head exam: Present: atraumatic, normal inspection - Eye Eye exam: Present: EOMI, normal appearance Pupils: Present: PERRL - Respiratory Respiratory exam: Present: CTAB. Absent: accessory muscle use, chest wall tenderness, decreased breath sounds, respiratory distress - Cardiovascular Cardiovascular exam: Present: +S1, +S2, tachycardia (100-110). Absent: irregular rhythm, rubs - GI/Abdominal GI/Abdominal exam: Present: normal bowel sounds, soft, tenderness (mild diffuse tenderness.), no peritoneal signs. Absent: guarding, rebound, rigid - Extremities Exam Extremities exam: Present: full ROM, normal inspection. Absent: calf tenderness , pedal edema, tenderness - Back Exam Back exam: Present: CVA tenderness (R) (mild). Absent: CVA tenderness (L), paraspinal tenderness, vertebral tenderness - Neurological Exam Neurological exam: Present: alert, normal gait, oriented X3, no focal deficits - Psychiatric Psychiatric exam: Present: anxious, normal affect - Skin Skin exam: Present: dry, intact, normal color - VTE Documentation of Mechanical Device: Intermittent pneumatic compression device <Reid Hogue - Last Filed: 06/13/17 10:37> Date of Encounter: 06/13/17 - Discharge Diagnosis (1) Sepsis Status: Acute Qualifiers: Sepsis type: sepsis due to unspecified organism Qualified Code(s): A41.9 - Sepsis, unspecified organism (2) UTI (urinary tract infection) Status: Acute Qualifiers: Urinary tract infection type: site unspecified Hematuria presence: with hematuria Qualified Code(s): N39.0 - Urinary tract infection, site not specified; R31.9 - Hematuria, unspecified; R31.9 - Hematuria, unspecified (3) Hydronephrosis Status: Acute Qualifiers: Hydronephrosis type: with renal calculous obstruction Qualified Code(s): N13.2 - Hydronephrosis with renal and ureteral calculous obstruction (4) Right distal ureteral calculus Status: Acute Procedures/tests Complete & Pending: Procedures Performed prior 72 hours Category Date Time Status EKG [ECG 12 lead ECG] [ECG] Stat Y 06/11/17 10:53 Completed Date of admission: 06/11/17 04:22 Primary care physician: Abby Yadav MD Hospital course: Ms. Pak is a 31 year old female - Time Spent with Patient Total time spent providing and/or coordinating discharge services: - Constitutional Vitals: Temp Pulse Resp BP Pulse Ox 99.1 F 108 15 112/71 96 06/12/17 10:17 06/12/17 10:17 06/12/17 10:17 06/12/17 10:17 06/12/17 10:17 - Attending Attestation seen. agree with plan. discharge on po antibiotics, we will follow urine culture and call her if need be for different antibiotics
--- NOTE | 2017-06-12 17:23 | Electrocardiograph Report ---
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
== END 2017-06-12 13:59 | disposition left against medical advice (07) | DRG 854 ==
LOC: 3ANU 02:20 → EMEROO 02:20 → 3ANU 04:37
PROVIDERS: ADMIT Internal Medicine Hematology & Oncology; ATTEND Internal Medicine